=== PATIENT | male | born 1935 | race Caucasian/White ===

== ENCOUNTER 2021-05-23 13:40 | Emergency (ER) | payer MEDICARE ==
[2021-05-23] MEDS ORDERED: ATOR40TA78 PO (15:52)
[2021-05-23] MEDS ORDERED: FLUT1BLS INH (15:52)
[2021-05-23] MEDS ORDERED: ALLO100T30 PO (15:52)
[2021-05-23] MEDS ORDERED: FURO40TA6 PO (15:52)
[2021-05-23] MEDS ORDERED: ALBU6.7H8 INH (15:52)
== END 2021-05-24 08:04 ==
LOC: EDBD → ED 05-24 07:31
DX: R68.89 Other general symptoms and signs (principal); Z53.21 Procedure and treatment not carried out due to patient leaving prior to being seen by health care provider

== ENCOUNTER → 2021-05-23 | Outpatient (CLI) | payer MEDICARE ==
[~2021-05-23] MED LIST: ALBU6.7H8 INH; ALLO100T30 PO; ATOR40TA78 PO; FLUT1BLS INH; FURO40TA6 PO
[2021-05-23 15:54] LABS: BASOPHILS % (AUTO) 1 % (0-1); EOSINOPHILS % (AUTO) 2 % (1-7); LYMPHOCYTES % (AUTO) 19 % (22-44); MEAN CORPUSCULAR HEMOGLOBIN 30.4 pg (27.5-34.5); MEAN CORPUSCULAR HGB CONC 33.1 g/dL (33.2-36.2); MEAN PLATELET VOLUME 7.7 fL (7.4-10.4); MONOCYTES % (AUTO) 7 % (2-9); NEUTROPHILS % (AUTO) 71 % (42-75); PLATELET COUNT 293 x10^3/uL (130-400); RED BLOOD COUNT 4.75 x10^6/uL (4.38-5.82); RED CELL DISTRIBUTION WIDTH 15.4 % (9.4-14.8)
[2021-05-23 15:56] LABS: INTERNATIONAL NORMALIZED RATIO 1.07 (0.93-1.1); PROTHROMBIN TIME 11.4 Seconds (9.6-11.5)
[2021-05-23 15:57] LABS: ALANINE AMINOTRANSFERASE 16 U/L (12-78); ALBUMIN 3.3 g/dL (3.4-5.0); ANION GAP 8 mmol/L (5-15); CALCIUM 9.1 mg/dL (8.5-10.1); CHLORIDE 106 mmol/L (98-107); CREATININE 1.37 mg/dL (0.7-1.3)
[2021-05-23 15:59] LABS: ALKALINE PHOSPHATASE 117 U/L (45-117); BILIRUBIN,TOTAL 0.4 mg/dL (0.2-1.0); TOTAL PROTEIN 7.5 g/dL (6.4-8.2)
== END | disposition home or self-care (01) ==
LOC: EDBD 14:17 → STAR 14:17
PROVIDERS: ATTEND Internal Medicine
DX: Z01.818 Encounter for other preprocedural examination (principal); R91.8 Other nonspecific abnormal finding of lung field; I44.4 Left anterior fascicular block; Z20.822 Contact with and (suspected) exposure to COVID-19
CPT/HCPCS: 36415; 80053; 85025; 85610; 85730; 93005; U0003; U0005

== ENCOUNTER 2021-05-27 07:48 | Day surgery (SDC) | payer MEDICARE ==
[~2021-05-27] VITALS: Ht 182.9 cm; Wt 93.8 kg
[2021-05-27 08:24] VITALS: BP 128/73
[2021-05-27] MEDS ORDERED: CHLORHEXIDINE 15 ML UDC ONE (08:30)
[2021-05-27] MEDS ORDERED: HYDROcodone/APAP 7.5-325MG/15ML UDC PO PRN (08:30)
[2021-05-27] MEDS ORDERED: OXYcodone 5 MG/5 ML ORAL.SOL UDC PO PRN (08:30)
[2021-05-27] MEDS ORDERED: FENTANYL PF 100 MCG/2ML IV PRN (08:30)
[2021-05-27] MEDS ORDERED: CHLORHEXIDINE 15 ML UDC PO ONE (08:30)
[2021-05-27] MEDS ORDERED: MEPERIDINE/PF 25MG/0.5ML IVPush PRN (08:30)
[2021-05-27] MEDS ORDERED: HYDROmorphone 1 MG/ML, 1ML INJ IVPush PRN (08:30)
[2021-05-27] MEDS ORDERED: ONDANSETRON 2MG/ML, 2ML IVPush PRN (08:30)
[2021-05-27] MEDS ORDERED: LACTATED RINGERS 1,000 ML IV SCH (08:30)
[2021-05-27] MEDS ORDERED: FENTANYL PF 100 MCG/2ML ONE (09:19)
[2021-05-27] MEDS ORDERED: PROPOFOL 50 ML ONE (10:22)
== END 2021-05-27 13:10 | disposition home or self-care (01) ==
LOC: EDBD → OUT 07:48
PROVIDERS: ATTEND Internal Medicine Critical Care Medicine
DX: R91.8 Other nonspecific abnormal finding of lung field (principal); C96.9 Malignant neoplasm of lymphoid, hematopoietic and related tissue, unspecified; I50.30 Unspecified diastolic (congestive) heart failure; R59.9 Enlarged lymph nodes, unspecified; G47.33 Obstructive sleep apnea (adult) (pediatric); N18.30 Chronic kidney disease, stage 3 unspecified; E66.9 Obesity, unspecified; Z68.28 Body mass index [BMI] 28.0-28.9, adult; Z79.899 Other long term (current) drug therapy; Z87.891 Personal history of nicotine dependence; Z72.89 Other problems related to lifestyle; Z98.890 Other specified postprocedural states
CPT/HCPCS: 31652; 71045; 88172; 88173; 88305; J2704; J3010; J7120